=== PATIENT | male | born 1990 | race Caucasian/White ===

== ENCOUNTER 2020-07-25 14:51 | Emergency (ER) | payer MEDICAID, OTHER ==
[2020-07-25] MEDS ORDERED: BUFFERED LIDOCAINE 10 ML SYRINGE SUBQ STA (15:21)
[2020-07-25] MEDS ORDERED: TETANUS/DIPHTHERIA/PERTUSSIS 0.5 ML SYRINGE IM ONE (15:22)
[2020-07-25] MEDS ORDERED: BACITRACIN ZINC OINT 1 PACKET TOP STA (15:22)
--- NOTE | 2020-07-25 15:23 | ED Physician Documentation ---
History of Present Illness - Stated complaint Stated Complaint: LT FINGER LAC - Chief complaint Chief Complaint: Laceration - Additonal information Additional information: 30-year-old male presents emergency department for evaluation of the left index finger laceration. His finger was unfortunately caught between a trailer hitch and the ball this afternoon at home. He has a circular shaped laceration on the fat pad of the left index finger. He reports that the finger feels somewhat numb from the DIP forward. Unknown last tetanus. Patient is right-hand dominant Review of Systems Constitutional: reports: Reviewed and negative Ears: reports: Reviewed and negative Nose: reports: Reviewed and negative Throat: reports: Reviewed and negative Cardiac: reports: Reviewed and negative Respiratory: reports: Reviewed and negative GI: reports: Reviewed and negative : reports: Reviewed and negative Skin: reports: Laceration (s) (Fat pad left index finger) PD PAST MEDICAL HISTORY - Past Medical History Past Medical History: No - Past Surgical History Past Surgical History: No - Present Medications Home Medications: Ambulatory Orders Medication Instructions Recorded Confirmed No Known Home Medications 07/25/20 07/25/20 - Allergies Allergies/Adverse Reactions: Allergies Allergy/AdvReac Type Severity Reaction Status Date / Time No Known Drug Allergies Allergy Verified 07/25/20 15:01 - Social History Does the pt smoke?: No Smoking Status: Never smoker Does the pt drink ETOH?: Yes Does the pt have substance abuse?: No - Immunizations Immunizations are current?: No PD ED PE EXPANDED - Extremities Extremities: Left finger(s) (Curved laceration 1.5 cm on the fat pad left index finger. Distal flexion and extension is preserved. Diminished two-point discrimination distally. Mild swelling.) Results - Vitals Vitals: Vital Signs - 24 hr 07/25/20 15:01 Temperature 36.6 C Heart Rate 86 Respiratory 16 Rate Blood Pressure 149/85 H O2 Saturation 100 Oxygen O2 Source Room air - Rads (name of study) left index finger xr Radiology: Final report received (No acute fracture or dislocation.) Procedures - Laceration (location) left index finger Length in cm: 1.5 Wound type: Curved Neurovascular status: Motor intact, Vascular intact. No: Sensory intact Tendon involvement: Tendon intact Anesthesia: LET Wound preparation: Chlorhexadine, Irrigated copiously NS Skin layer closure: Interrupted, Size #-0 - enter number (4), Sutures - enter # (3) Other: Patient tolerated well, No complications, Tetanus booster given PD MEDICAL DECISION MAKING - ED course Complexity details: reviewed results, re-evaluated patient, d/w patient ED course: 30-year-old male presents emergency department for evaluation of a left index finger fat pad laceration sustained when his finger was trapped while removing a trailer from a hitch. X-ray does not show acute fracture. He does have some moderate swelling of the distal tip most suggestive of a contusion. However he has brisk cap refill. There is some mild sensation loss that I think is associated with the swelling. He does not have a laceration that would extend to the nerve fibers. Wound was easily closed here with 3 sutures. Tetanus was updated. Routine wound care and emergent return precautions were discussed Departure - Departure Disposition: 01 Home, Self Care Clinical Impression: Laceration of left index finger Qualifiers: Encounter type: initial encounter Damage to nail status: without damage Foreign body presence: without foreign body Qualified Code(s): S61.211A - Laceration without foreign body of left index finger without damage to nail, initial encounter Condition: Stable Record reviewed to determine appropriate education?: Yes Instructions: ED Laceration Hand Comments: Your suture should be removed in 7 to 10 days. In 24 hours you may remove the dressing wash gently with warm soap and water, apply any antibiotic ointment and a simple bandage. Your tetanus is up-to-date. Please attempt to keep your wound clean and dry. Do not submerge it in dirty dishwater or bath water. Return to the emergency department if you have any concerns of infection such as redness, fevers milky drainage increased pain. It is okay to take motrin or tylenol over the counter at home for pain.
--- NOTE | 2020-07-25 15:51 | XRAY Report ---
PROCEDURE: Finger(s) LT INDICATIONS: r/o fracture TECHNIQUE: AP hand, 2 views of the second finger(s) acquired. COMPARISON: None. FINDINGS: Bones: No fractures or dislocations. No suspicious bony lesions. Soft tissues: No suspicious soft tissue calcifications. IMPRESSION: No fracture or dislocation. Reviewed by: Manuel Berumen MD on 07/25/2020 3:50 PM PDT Approved by: Manuel Berumen MD on 07/25/2020 3:50 PM PDT Station ID: [id number]
[2020-07-25 16:07] VITALS: BP 122/82
== END 2020-07-25 16:09 | disposition home or self-care (01) ==
LOC: ED 14:51
DX: S61.211A Laceration without foreign body of left index finger without damage to nail, initial encounter (principal); W23.1XXA Caught, crushed, jammed, or pinched between stationary objects, initial encounter; Y92.009 Unspecified place in unspecified non-institutional (private) residence as the place of occurrence of the external cause
CPT/HCPCS: 12001; 73140; 90471; 90715; 99281; 99283; A9270

== ENCOUNTER 2022-10-19 10:36 | Emergency (ER) | payer MEDICAID ==
[2022-10-19 11:32] LABS: BASOPHILS % (AUTO) 0.3 %; EOSINOPHILS # (AUTO) 0.1 10^3/uL (0.0-0.7); EOSINOPHILS % (AUTO) 0.6 %; HCT - HEMATOCRIT 47.5 % (42.0-52.0); HGB - HEMOGLOBIN 15.6 g/dL (14.0-18.0); LYMPHOCYTES # (AUTO) 2.8 10^3/uL (1.5-3.5); LYMPHOCYTES % (AUTO) 35.6 %; MEAN CORPUSCULAR HEMOGLOBIN 27.8 pg (27.0-31.0); MEAN CORPUSCULAR HGB CONC 32.8 g/dL (32.0-36.0); MEAN CORPUSCULAR VOLUME 84.7 fL (80.0-94.0); MEAN PLATELET VOLUME 8.8 fL (7.4-11.4); MONOCYTES # (AUTO) 0.6 10^3/uL (0.0-1.0); MONOCYTES % (AUTO) 7.2 %; NEUTROPHILS # (AUTO) 4.4 10^3/uL (1.5-6.6); PLT - PLATELET COUNT 297 10^3/uL (130-450); RED BLOOD COUNT 5.61 10^6/uL (4.70-6.10); RED CELL DISTRIBUTION WIDTH 12.6 % (12.0-15.0); WHITE BLOOD COUNT 7.9 x10^3/uL (4.8-10.8)
[2022-10-19 11:45] LABS: ALBUMIN 4.8 g/dL (3.2-5.5); ALBUMIN/GLOBULIN RATIO 1.6 (1.0-2.2); BILIRUBIN,TOTAL 0.7 mg/dL (0.2-1.0); CREATININE 0.9 mg/dL (0.6-1.3); POTASSIUM 3.9 mmol/L (3.5-4.5); TOTAL PROTEIN 7.8 g/dL (6.4-8.9)
--- NOTE | 2022-10-19 14:13 | ED Physician Documentation ---
PD HPI ABD PAIN - Stated complaint Stated Complaint: ABD PX - Chief complaint Chief Complaint: Abd Pain - History obtained from History obtained from: Patient, Family (Spouse) - History of Present Illness Timing - onset: Yesterday Timing - duration: Days (1) Timing - details: Gradual onset, Now resolved Quality: Sharp, Pain Location: RLQ Improved by: Laying still Worsened by: Moving, Position, Palpation Associated symptoms: Diarrhea (loose stool only). 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 Yesterday he began to experience a sharp cramping-like pain in the right side of his abdomen. He noted this was worse with palpation and with movement. He spent the night worrying about the possibility of appendicitis and this morning his pain is somewhat better but he still had pain with palpation. He came to the emergency department for evaluation. He has been in the emergency department for more than 3 hours and he states that currently his pain is much improved. He does not have pain at rest. He has pain if he tries to sit up in bed. This is pain to a very specific area. He feels like he wants to go out and have some lunch right now. He did not eat this morning. Review of Systems Constitutional: denies: Fever Eyes: denies: Decreased vision Ears: denies: Ear pain Nose: denies: Congestion Throat: denies: Sore throat Respiratory: denies: Cough GI: reports: Abdominal Pain, Diarrhea (loose stool only). denies: Nausea, Vomiting, Constipation : denies: Dysuria, Frequency Skin: denies: Rash Musculoskeletal: denies: Neck pain, Back pain, Extremity pain Neurologic: denies: Generalized weakness, Focal weakness, Numbness PD PAST MEDICAL HISTORY - Past Surgical History Past Surgical History: No - Present Medications Home Medications: Ambulatory Orders Medication Instructions Recorded Confirmed No Known Home Medications 07/25/20 07/25/20 - Allergies Allergies/Adverse Reactions: Allergies Allergy/AdvReac Type Severity Reaction Status Date / Time No Known Drug Allergies Allergy Verified 07/25/20 15:01 - Social History Does the pt smoke?: No Smoking Status: Never smoker Does the pt drink ETOH?: Yes Does the pt have substance abuse?: No - Immunizations Immunizations are current?: No PD ED PE NORMAL - Vitals Vital signs reviewed: Yes (hypertensive mild ) - General General: Alert and oriented X 3, No acute distress, Well developed/nourished - HEENT HEENT: Atraumatic, PERRL, EOMI - Neck Neck: Supple, no meningeal sign, No bony TTP - Cardiac Cardiac: RRR, No murmur - Respiratory Respiratory: No respiratory distress, Clear bilaterally - Abdomen Abdomen: Normal bowel sounds, Soft, Non distended, No organomegaly, Other (tenderness to deep deep palpation only and mild. No rebound or referred tenderness. Pain with sitting up) - Back Back: No CVA TTP, No spinal TTP - Derm Derm: Normal color, Warm and dry, No rash - Extremities Extremities: No deformity, No edema - Neuro Neuro: Alert and oriented X 3, sports fitness and wellness director 2-12 intact, No motor deficit, No sensory deficit, Normal speech Eye Opening: Spontaneous Motor: Obeys Commands Verbal: Oriented GCS Score: 15 - Psych Psych: Normal mood, Normal affect Results - Vitals Vitals: Vital Signs - 24 hr 10/19/22 10:42 Temperature 37.3 C Heart Rate 66 Respiratory 18 Rate Blood Pressure 148/83 H O2 Saturation 100 Oxygen O2 Source Room air - Labs Labs: Laboratory Tests 10/19/22 10/19/22 11:27 11:27 WBC 7.9 RBC 5.61 Hgb 15.6 Hct 47.5 MCV 84.7 MCH 27.8 MCHC 32.8 RDW 12.6 Plt Count 297 MPV 8.8 Neut # (Auto) 4.4 Lymph # (Auto) 2.8 Stanley # (Auto) 0.6 Eos # (Auto) 0.1 Baso # (Auto) 0.0 Absolute Nucleated RBC 0.00 Nucleated RBC % 0.0 Sodium 138 Potassium 3.9 Chloride 104 Carbon Dioxide 29 Anion Gap 5.0 L BUN 7 Creatinine 0.9 Estimated GFR (MDRD) 98 Glucose 91 Calcium 10.0 Total Bilirubin 0.7 AST 19 ALT 19 Alkaline Phosphatase 53 Total Protein 7.8 Albumin 4.8 Globulin 3.0 Albumin/Globulin Ratio 1.6 Lipase 12 PD Medical Decision Making - ED course Reviewed Lab Results: We reviewed a complete blood count showing a white blood cell count normal at 7.9 normal hemoglobin hematocrit and platelets chemistries showed normal electrolytes normal kidney and liver function.I did not find any thing in the patient's laboratory studies to suggest the possibility of appendicitis. ED course: 32-year-old male presents to the emergency department with pain in the right lower quadrant worse with movement. He has had a course of onset of pain yesterday afternoon pain throughout the night no vomiting he was able to eat a normal dinner last night feels hungry today and has improvement in his pain throughout the day. He now feels that the pain is specifically related to movement and specifically located in a specific area. I examined the patient and found some tenderness to deep palpation only and not consistent with appendicitis. The only time I could elicit pain in the patient was when he went to use his abdominal muscles to sit up in the bed. I suspect he has an abdominal wall muscle strain and I have shared this with the patient and his spouse. I have indicated reasons to come back to the emergency department for reevaluation for appendicitis. Departure - Departure Disposition: 01 Home, Self Care Clinical Impression: Abdominal pain Qualifiers: Abdominal location: right lower quadrant Qualified Code(s): R10.31 - Right lower quadrant pain Strain of abdominal wall Qualifiers: Encounter type: initial encounter Qualified Code(s): S39.011A - Strain of muscle, fascia and tendon of abdomen, initial encounter Instructions: ED Abdominal Pain Appendx Poss, ED Strain Abdominal Muscle Follow-Up: Bret Causey MD [Primary Care Provider] - Comments: Kelly, today it looks like the pain you are having in your right lower quadrant is an abdominal wall muscle strain. This will usually give you pain when you are using your abdominal wall but should not interfere with your food digestion. My recommendation today is to go home and have lunch do it you would normally do. If you begin to experience symptoms from eating, that would be a reason to come back to the emergency department. Appendicitis will usually present itself within a 24-hour period with continuously increasing symptoms of pain nausea fever and anorexia. All of your evaluation today including the blood work and exam do not indicate acute appendicitis.
[2022-10-19 14:42] VITALS: BP 130/74
== END 2022-10-19 14:37 | disposition home or self-care (01) ==
LOC: ED 10:36
DX: S39.011A Strain of muscle, fascia and tendon of abdomen, initial encounter (principal); X58.XXXA Exposure to other specified factors, initial encounter
CPT/HCPCS: 36415; 80053; 83690; 85025; 99283